=== PATIENT | female | born 1985 | race African-American/Black ===

== ENCOUNTER 2016-10-03 14:25 | Emergency (ER) | payer BC, OTHER ==
[2016-10-03 12:24] LABS: BASOPHILS 0.4 %; BASOPHILS ABSOLUTE 0.02 10/3/uL (0.0-0.16); EOSINOPHILS 1.4 %; EOSINOPHILS ABSOLUTE 0.07 10/3/uL (0.0-0.53); HEMATOCRIT 42.4 % (36.0-48.0); HEMOGLOBIN 14.3 g/dL (12.0-16.0); IMMATURE GRANULOCYTES 0.2 %; IMMATURE GRANULOCYTES ABSOLUTE 0.01 10/3/uL (0.0-0.11); LYMPHOCYTES 31.7 %; LYMPHOCYTES ABSOLUTE 1.63 10/3/uL (0.67-4.30); MEAN CORPUS HGB CONC 33.7 g/dL (32.0-36.0); MEAN CORPUSCULAR HEMOGLOB 30.9 pg (26.0-34.0); MEAN CORPUSCULAR VOLUME 91.6 fL (80-100); MEAN PLATELET VOLUME 8.4 fL (9.2-13.0); MONOCYTES 11.9 %; MONOCYTES ABSOLUTE 0.61 10/3/uL (0.21-1.20); NEUTROPHILS 54.4 %; PLATELET COUNT 274 10/3/uL (150-400); RED CELL COUNT 4.63 10/6/uL (4.0-5.6); WHITE BLOOD CELLS 5.1 10/3/uL (4.5-10.5)
[2016-10-03 12:25] LABS: MANUAL DIFF NO %
[2016-10-03 12:32] LABS: INTERNATIONAL NORMAL RATI 1.1 UNITS (-); PARTIAL THROMBO TIME 27.5 SEC (22.5-37.2); PROTIME (NOT ORD) 13.6 SEC (12.0-14.5)
[2016-10-03 12:37] LABS: BUN (BLOOD UREA NITROGEN) 6 MG/DL (6-23); CALCIUM, SERUM 8.7 MG/DL (8.5-10.4); CHLORIDE, SERUM 111 MMOL/L (96-112); CO2 (CARBON DIOXIDE) 25 MMOL/L (24-34); CREATININE 0.96 MG/DL (0.55-1.02); GFR AFRICAN AMERICAN 91 ML/MIN (>=60); GFR NON AFRICAN AMERICAN 78 ML/MIN (>=60); GLUCOSE, SERUM 80 MG/DL (60-99); POTASSIUM, SERUM 3.9 MMOL/L (3.5-5.3)
[2016-10-03 12:40] LABS: SODIUM, SERUM 143 MMOL/L (135-148)
== END 2016-10-03 15:04 | disposition home or self-care (01) ==
LOC: ER 14:25
PROVIDERS: Nurse Practitioner Acute Care
DX: M79.605 Pain in left leg (principal); F17.200 Nicotine dependence, unspecified, uncomplicated
CPT/HCPCS: 80048; 84703; 85025; 85610; 85730; 93971; 99284; A9270-GY